=== PATIENT | male | born 2000 | race Two or more races ===

== ENCOUNTER 2021-04-08 03:22 | Emergency (ER) | payer OTHER ==
[~2021-04-08 03:22] MED LIST: NAPROSYN500 MG PO; PERCOCET 5-3251 EACH PO
[2021-04-08 05:09] LABS: HEMOGLOBIN 15.3 gm/dl (14.0-17.5); RED BLOOD COUNT 5.34 M/UL (4.20-5.50); WHITE BLOOD COUNT 21.2 K/UL (4.5-11.0)
[2021-04-08 05:29] LABS: BUN/CREATININE RATIO 18 (0-10)
[2021-04-08] MEDS ORDERED: IBUPROFEN600 MG PO (06:25)
[2021-04-08] MEDS ORDERED: TYLENOL W/CODEIN1 EA PO (06:25)
[2021-04-08] MEDS ORDERED: ZOFRAN4 MG PO (07:00)
== END 2021-04-08 08:20 | disposition home or self-care (01) ==
LOC: ER1 03:22
PROVIDERS: Internal Medicine
DX: S22.32XA Fracture of one rib, left side, initial encounter for closed fracture (principal); S50.812A Abrasion of left forearm, initial encounter; E66.9 Obesity, unspecified; F17.210 Nicotine dependence, cigarettes, uncomplicated; V86.99XA Unspecified occupant of other special all-terrain or other off-road motor vehicle injured in nontraffic accident, initial encounter; Y92.410 Unspecified street and highway as the place of occurrence of the external cause
CPT/HCPCS: 71260; 80053; 85025; 90715; J2270; J2405; Q9967

== ENCOUNTER 2021-04-08 23:36 | Emergency (ER) | payer OTHER ==
[~2021-04-08 23:36] MED LIST changes: +IBUPROFEN600 MG PO; +TYLENOL W/CODEIN1 EA PO; +ZOFRAN4 MG PO
== END 2021-04-09 04:29 | disposition home or self-care (01) ==
LOC: ER1 23:36
DX: S22.32XA Fracture of one rib, left side, initial encounter for closed fracture (principal); F17.210 Nicotine dependence, cigarettes, uncomplicated; E66.9 Obesity, unspecified; Z23 Encounter for immunization; V86.59XA Driver of other special all-terrain or other off-road motor vehicle injured in nontraffic accident, initial encounter; Y92.410 Unspecified street and highway as the place of occurrence of the external cause
CPT/HCPCS: 71260; 80053; 85025; 90471; 90715; 96372; 96374; 96375; 96376; 99283; 99284; J2270; J2405; Q9967